=== PATIENT | male | born 1950 | race African-American/Black ===

== ENCOUNTER → 2018-08-03 | Outpatient (CLI) | payer OTHER, BC | LOC: MRI 11:08 | DX: S43.402A Unspecified sprain of left shoulder joint, initial encounter (principal); M19.012 Primary osteoarthritis, left shoulder; M25.712 Osteophyte, left shoulder; M25.412 Effusion, left shoulder; X58.XXXA Exposure to other specified factors, initial encounter; Y93.89 Activity, other specified; Y92.89 Other specified places as the place of occurrence of the external cause; Y99.8 Other external cause status ==